=== PATIENT | female | born 1995 | race Caucasian/White ===

== ENCOUNTER 2018-09-03 19:45 | Emergency (ER) | payer MEDICAID ==
[2018-09-03] MEDS ORDERED: Nicotine Inhaler* 10 MG AMP INH PRN (20:07)
[2018-09-03] MEDS ORDERED: Mouth Piece, Nicotine* 1 EACH CARTRIDGE INH PRN (20:18)
[2018-09-03 20:47] LABS: ABS Basophils 0.1 10^3/ul (0-0.2); ABS Eosinophils 0.2 10^3/ul (0-0.6); ABS Lymphocytes 3.3 10^3/ul (1.0-4.8); ABS Monocytes 1.2 10^3/ul (0-0.8); ABS Neutrophils 11.3 10^3/ul (1.5-7.7); ABS Nucleated RBC 0 10^3/ul; Hematocrit 45 % (35-47); Lymphocyte % 20.6 %; Mean Corpuscular HGB Conc 34 g/dl (31-36); Mean Corpuscular Hemoglobin 31 pg (27-31); Mean Corpuscular Volume 92 fL (80-97); Mean Platelet Volume 7.2 fL (7.4-10.4); Nucleated Red Blood Cells % 0; Platelet Count 329 10^3/ul (150-450); Red Blood Count 4.86 10^6/ul (4.00-5.40); Red Cell Distribution Width 14 % (10.5-15)
[2018-09-03 21:04] LABS: ALT 35 U/L (7-52); AST 28 U/L (13-39); Albumin 4.5 g/dL (3.2-5.2); Albumin/Globulin Ratio 1.6 (1-3); Alkaline Phosphatase 54 U/L (34-104); Anion Gap 10 mmol/L (2-11); BUN/Creatinine Ratio 23.8 (8-20); Blood Urea Nitrogen 19 mg/dL (6-24); CO2 Carbon Dioxide 24 mmol/L (22-32); Calcium 9.9 mg/dL (8.6-10.3); Chloride 105 mmol/L (101-111); EGFR Non-African American 87.4 (>60); Globulin 2.8 g/dL (2-4); Glucose 105 mg/dL (70-100); Potassium 4.4 mmol/L (3.5-5.0); Sodium 139 mmol/L (135-145); Total Protein 7.3 g/dL (6.4-8.9)
[2018-09-03 21:06] LABS: Acetaminophen < 15 mcg/mL; Alcohol < 10 mg/dL (<10)
[2018-09-03 21:11] LABS: HCG Pregnancy < 0.60 mIU/mL
[2018-09-03 21:21] LABS: TSH (Thyroid Stimulating Horm) 0.78 mcIU/mL (0.34-5.60)
--- NOTE | 2018-09-03 21:21 | ED ---
Psychiatric Complaint - HPI Summary HPI Summary: Pt is a 23 y/o female who presents to the ED c/o self-harm ideations. She has been having recurrent SI since 10 years old, and had increased self-harm ideation this morning. Pt denies any current SI. Pt was urged to come to the ED by her friends and family. She is a meth addict, and states that a former pre- secondary school teacher librarian at her workplace repeatedly convinced her to use meth. Pt ingested only via smoking, and doesnt use it every day. She states that smoking makes her feel enlightened. She last smoked 2 hits earlier today, and states there is still some in her system. She feels sleep deprived, manic, and volatile. Pt feels easily over-stimulated. Pt is prescribed Sertraline but hasnt taken the medication yet. She denies any alcohol use, but smokes 1 ppd. LNMP 1 month ago. - History Of Current Complaint Chief Complaint: EDMentalHealth Time Seen by Provider: 09/03/18 21:05 Hx Obtained From: Patient Onset/Duration: Gradual Onset, Still Present Character: Manic Aggravating Factor(s): Drug Use - Meth Alleviating Factor(s): Nothing Has Suicidal: Denies: Thoughts Ingestion History: Type/Name Of Drug - Meth, Amount Ingested - "2 hits", Approximate Time Of Ingestion - today - Allergies/Home Medications Allergies/Adverse Reactions: Allergies Allergy/AdvReac Type Severity Reaction Status Date / Time No Known Allergies Allergy Verified 09/03/18 19:51 PMH/Surg Hx/FS Hx/Imm Hx Endocrine/Hematology History: Denies: Hx Diabetes Cardiovascular History: Denies: Hx Hypertension Infectious Disease History: No Infectious Disease History: Denies: Traveled Outside the [place] in Last 30 Days - Family History Known Family History: Negative: Diabetes - Social History Alcohol Use: None Hx Substance Use: Yes Substance Use Type: Reports: Other - Meth Hx Tobacco Use: Yes Smoking Status (MU): Heavy Every Day Tobacco Smoker Type: Cigarettes Amount Used/How Often: 1 ppd Review of Systems Positive: Other - sleep deprived Positive: Other - manic, self-harm ideation, NEGATIVE: SI All Other Systems Reviewed And Are Negative: Yes Physical Exam - Summary Physical Exam Summary: Appearance: Well appearing, no pain distress Skin: warm, dry, reflects adequate perfusion Head/face: normal Eyes: EOMI, NANCY ENT: mucous membranes moist Neck: supple, non-tender Respiratory: CTA, breath sounds present Cardiovascular: RRR, pulses symmetrical Abdomen: non-tender, soft Bowel Sounds: present Musculoskeletal: normal, strength/ROM intact Neuro: normal, sensory motor intact, A&Ox3 Psych: manic, no SI Triage Information Reviewed: Yes Vital Signs On Initial Exam: Initial Vitals Temp Pulse Resp BP Pulse Ox 99.4 F 116 20 118/77 100 09/03/18 19:49 09/03/18 19:49 09/03/18 19:49 09/03/18 19:49 09/03/18 19:49 Vital Signs Reviewed: Yes Diagnostics - Vital Signs Vital Signs Temp Pulse Resp BP Pulse Ox 09/03/18 19:49 99.4 F 116 20 118/77 100 - Laboratory Lab Results: Lab Results 09/03/18 09/03/18 Range/Units 20:35 20:35 WBC 16.0 H (3.5-10.8) 10^3/ul RBC 4.86 (4.00-5.40) 10^6/ul Hgb 15.0 (12.0-16.0) g/dl Hct 45 (35-47) % MCV 92 (80-97) fL MCH 31 (27-31) pg MCHC 34 (31-36) g/dl RDW 14 (10.5-15) % Plt Count 329 (150-450) 10^3/ul MPV 7.2 L (7.4-10.4) fL Neut % (Auto) 70.5 % Lymph % (Auto) 20.6 % [place] % (Auto) 7.3 % Eos % (Auto) 1.0 % Baso % (Auto) 0.6 % Absolute Neuts (auto) 11.3 H (1.5-7.7) 10^3/ul Absolute Lymphs (auto) 3.3 (1.0-4.8) 10^3/ul Absolute Monos (auto) 1.2 H (0-0.8) 10^3/ul Absolute Eos (auto) 0.2 (0-0.6) 10^3/ul Absolute Basos (auto) 0.1 (0-0.2) 10^3/ul Absolute Nucleated RBC 0 10^3/ul Nucleated RBC % 0 Sodium 139 (135-145) mmol/L Potassium 4.4 (3.5-5.0) mmol/L Chloride 105 (101-111) mmol/L Carbon Dioxide 24 (22-32) mmol/L Anion Gap 10 (2-11) mmol/L BUN 19 (6-24) mg/dL Creatinine 0.80 (0.51-0.95) mg/dL Est GFR ( Amer) 105.8 (>60) Est GFR (Non-Af Amer) 87.4 (>60) BUN/Creatinine Ratio 23.8 H (8-20) Glucose 105 H (70-100) mg/dL Calcium 9.9 (8.6-10.3) mg/dL Total Bilirubin 0.70 (0.2-1.0) mg/dL AST 28 (13-39) U/L ALT 35 (7-52) U/L Alkaline Phosphatase 54 (34-104) U/L Total Protein 7.3 (6.4-8.9) g/dL Albumin 4.5 (3.2-5.2) g/dL Globulin 2.8 (2-4) g/dL Albumin/Globulin Ratio 1.6 (1-3) TSH Pending Beta HCG, Quant < 0.60 mIU/mL Salicylates 2.70 (<30) mg/dL Acetaminophen < 15 mcg/mL Serum Alcohol < 10 (<10) mg/dL Result Diagrams: 09/03/18 20:35 09/03/18 20:35 Lab Statement: Any lab studies that have been ordered have been reviewed, and results considered in the medical decision making process. Re-Evaluation - Re-Evaluation First Eval Re-Evaluation Time: 21:20 Change: Unchanged Comment: Pt is medically cleared for a MHE. Course/Dx - Course Course Of Treatment: Nurse's notes reviewed. Patient having insomnia, tejas related to methamphetamine abuse. She last used at noon time today. She was medically stable and was cleared for mental health evaluation. Mental health evaluation was performed and the patient was cleared for discharge for outpatient drug abuse counseling by the psychiatrist. She is stable here with no suicidal ideation. She is discharged to the care of her parents. - Differential Dx/Clinical Impression Differential Diagnosis/HQI/PQRI: Positive: Anxiety, Depression, Suicidal Ideation, Other - Drug abuse Provider Diagnosis: Depression, Insomnia, Methamphetamine abuse - Physician Notifications Discussed Care Of Patient With: Bishop Sanders Time Discussed With Above Provider: 22:50 Instructed by Provider To: Other - Pt is cleared to go home. Discharge - Sign-Out/Discharge Documenting (check all that apply): Patient Departure - Discharge - Discharge Plan Condition: Improved Disposition: HOME Patient Education Materials: Methamphetamine Abuse (ED) Referrals: Gia Lowry MD [Primary Care Provider] - [facility],. [Z.BUSINESS, APPLICATION, OTHER] - Additional Instructions: Per completion of a mental health evaluation, you are cleared for release and do not require inpatient psychiatric hospitalization at this time. Please go to nearest emergency room or call 911 if safety concerns arise or condition worsens. Important Phone Numbers: [facility] ph:[phone] Su[facility] Crisis [facility] ph:[phone] National Suicide Prevention Lifeline ph:[phone] (6991) [facility] ph:[phone] Alcoholics Anonymous ph:[phone] [facility] ph:[phone] [place] [employer] ph:[phone] Recommendation: Next day follow up with [facility] . - Billing Disposition and Condition Condition: IMPROVED Disposition: Home - Attestation Statements Document Initiated by Scribe: Yes Documenting Scribe: Janice Reddy Provider For Whom Scribe is Documenting (Include Credential): Lebron Marmolejo MD Scribe Attestation: IJanice, scribed for Lebron Marmolejo MD on 09/03/18 at 2306. Scribe Documentation Reviewed: Yes Provider Attestation: The documentation as recorded by the Janice viveros accurately reflects the service I personally performed and the decisions made by me, Lebron Marmolejo MD Status of Scribe Document: Viewed
[2018-09-03] MEDS ORDERED: LORazepam INJ* 2 MG/ML 1 ML VIAL IM ONE (22:04)
[2018-09-03 22:31] LABS: Urine Appearance Clear; Urine Bilirubin Negative (Negative); Urine Blood Negative (Negative); Urine Color Yellow; Urine Glucose Negative (Negative); Urine Ketones 1+ (Negative); Urine Nitrite Negative (Negative); Urine Protein Negative (Negative); Urine Specific Gravity 1.024 (1.010-1.030); Urine Urobilinogen Negative (Negative)
[2018-09-03 22:32] LABS: Barbiturates Urine Screen None Detected (None Detect); Benzodiazepine Urine Screen None Detected (None Detect); Urine Cannabinoids Screen Presumptive Positive (None Detect)
[2018-09-03 23:53] VITALS: BP 128/89
== END 2018-09-03 23:54 | disposition home or self-care (01) ==
LOC: ED 19:45
DX: F32.9 Major depressive disorder, single episode, unspecified (principal); G47.00 Insomnia, unspecified; F15.10 Other stimulant abuse, uncomplicated; F17.210 Nicotine dependence, cigarettes, uncomplicated
CPT/HCPCS: 36415; 80053; 80307; 80320; 80329; 81003; 84443; 84702; 85025; 96372; 99284; G0480; J2060